=== PATIENT | female | born 1955 | race Caucasian/White ===

== ENCOUNTER 2016-08-09 11:27 | Inpatient (IN) | payer MEDICARE ==
[~2016-08-09] VITALS: Ht 167.6 cm; Wt 110.0 kg
[~2016-08-09 11:27] MED LIST: ACID1TAB3 PO; ACID1TAB7 PO; ALBU8.5H3 INH; ALBU8.5H5 INH; ALEN70TA3 PO; ALPR0.254 PO; ATOR10TA PO; Albuterol Nebulizer; CEPH-376 PO; CETI10TA18 PO; CYCL-259 PO; FAMO20TA7 PO; FLUT16SP NAS; FLUT1AER INH; FLUT1DIS3 INH; FLUT1DIS5 IH; FLUT9.9S NAS; FURO-93 PO; LACT10SO28 PO; LEVO500T33 PO; LEVO50TA5 PO; Lasix; NAPR500T3 PO; OXYC-223 PO; PANT40TA5 PO; POTA20TA91 PO; PRED10TA PO; PRED20TA PO; Spiriva; TIOT18CA INH; advair
[2016-08-09] MEDS ORDERED: LACTATED RINGERS 1,000 ML IV SCH (11:58)
[2016-08-09 12:01] VITALS: BP 115/81
[2016-08-09] MEDS ORDERED: MIDAZOLAM 1 MG/ML, 2ML ONE (12:48)
[2016-08-09] MEDS ORDERED: FENTANYL PF 100 MCG/2ML ONE ×3 (12:48→14:38)
[2016-08-09] MEDS ORDERED: LIDOCAINE 1%-EPI 1:100K, 20ML ONE (13:03)
[2016-08-09] MEDS ORDERED: SUCCINYLCHOLINE 20 MG/ML, 10ML ONE (13:12)
[2016-08-09] MEDS ORDERED: ALBUTEROL SULFATE 200 PUFFS/8.5 GR INH ONE (13:12)
[2016-08-09] MEDS ORDERED: PROPOFOL 10 MG/ML, 20ML ONE (13:12)
[2016-08-09] MEDS ORDERED: DEXAMETHASONE 4 MG/ML, 5ML ONE (13:12)
[2016-08-09] MEDS ORDERED: ROCURONIUM 10 MG/ML ONE (13:12)
[2016-08-09] MEDS ORDERED: CEFAZOLIN 1,000 MG ONE (13:12)
[2016-08-09] MEDS ORDERED: TRIAMCINOLONE ACETONIDE 40 MG/ML, 1ML ONE ×2 (13:26→13:28)
[2016-08-09] MEDS ORDERED: LIDOCAINE-MPF 1%, 2ML ONE ×2 (14:44→15:24)
[2016-08-09] MEDS ORDERED: FENTANYL PF 100 MCG/2ML IV PRN (15:30)
[2016-08-09] MEDS ORDERED: FLUTICASONE NASAL SPRAY 16GM NAS SCH (15:30)
[2016-08-09] MEDS ORDERED: morphine SULFATE 10 MG/ML, 1ML IV PRN (15:30)
[2016-08-09] MEDS ORDERED: MORPHINE SULFATE 4 MG/ML, 1ML ONE (15:35)
[2016-08-09] MEDS ORDERED: LIDOCAINE 1%, 2ML ENDO ONE (16:00)
[2016-08-09] MEDS: LACTATED RINGERS 1,000 ML IV SCH (16:33)
[2016-08-09] MEDS ORDERED: ALBUTEROL SULFATE 2.5 MG/3 ML NEB SCH (17:00)
[2016-08-09] MEDS ORDERED: ONDANSETRON 2MG/ML, 2ML IV PRN (17:00)
[2016-08-09] MEDS: OXYcodone/APAP 7.5/325MG TABLET PO PRN (18:08)
[2016-08-09] MEDS: HEPARIN 5,000 UNITS/ML, 1ML SQ SCH (18:08)
[2016-08-09] MEDS: ALBUTEROL/IPRATROPIUM 2.5MG/0.5MG, 3 ML NPPB SCH ×2 (19:16→23:23)
[2016-08-09] MEDS: ATORVASTATIN 10 MG TABLET PO SCH (20:14)
[2016-08-09] MEDS: NAPROXEN 500 MG TABLET PO SCH (20:15)
[2016-08-09] MEDS: CYCLOBENZAPRINE 10 MG TABLET PO SCH (20:15)
[2016-08-09] MEDS: FLUTICASONE NASAL SPRAY 16GM NAS SCH (20:36)
[2016-08-09] MEDS ORDERED: NAPROXEN 500 MG TABLET PO SCH (21:00)
[2016-08-09] MEDS ORDERED: IPRATROPIUM 0.5 MG/2.5 ML INHA HHN SCH (21:00)
[2016-08-09] MEDS: DEXAMETHASONE 4 MG/ML, 5ML IV SCH (21:30)
[2016-08-09] MEDS: CEFAZOLIN PMX 2GM/100ML 100 ML IV SCH (22:30)
[2016-08-09 23:43] VITALS: BP 133/86
[2016-08-10] MEDS: ALBUTEROL/IPRATROPIUM 2.5MG/0.5MG, 3 ML NPPB SCH ×6 (03:27→22:51)
[2016-08-10] MEDS: OXYcodone/APAP 7.5/325MG TABLET PO PRN ×3 (04:02→19:50)
[2016-08-10] MEDS: HEPARIN 5,000 UNITS/ML, 1ML SQ SCH ×4 (04:03→20:22)
[2016-08-10] MEDS: DEXAMETHASONE 4 MG/ML, 5ML IV SCH ×2 (04:03→13:30)
[2016-08-10 04:11] VITALS: BP 118/91
[2016-08-10 04:33] LABS: HEMOGLOBIN 14.8 g/dL (11.7-16.4)
[2016-08-10 04:46] LABS: BLOOD UREA NITROGEN 26 mg/dL (7-18)
[2016-08-10] MEDS: CEFAZOLIN PMX 2GM/100ML 100 ML IV SCH (05:48)
[2016-08-10] MEDS: LEVOTHYROXINE 50 MCG TABLET PO SCH (05:48)
[2016-08-10] MEDS: LACTATED RINGERS 1,000 ML IV SCH ×2 (05:49→19:13)
[2016-08-10] MEDS ORDERED: FLUTICASONE/VILANTEROL 100-25MCG/INH INH SCH (09:00)
[2016-08-10] MEDS: LACTULOSE 10 GM/15 ML UDC PO SCH (09:00)
[2016-08-10] MEDS ORDERED: TEMPLATE NON-FORMULARY MED. (Tiotropium Bromide** (Spiriva**) 18 MCG) INH SCH (09:00)
[2016-08-10] MEDS: FLUTICASONE/VILANTEROL 100-25MCG/INH INH SCH ×2 (09:00→11:17)
[2016-08-10] MEDS ORDERED: FUROSEMIDE 40 MG TABLET PO SCH (09:00)
[2016-08-10] MEDS ORDERED: LEVOTHYROXINE 50 MCG TABLET PO SCH (09:00)
[2016-08-10] MEDS ORDERED: POTASSIUM CHLORIDE 10 MEQ TABLET.ER PO SCH (09:00)
[2016-08-10] MEDS: NAPROXEN 500 MG TABLET PO SCH ×2 (09:10→20:19)
[2016-08-10] MEDS: FUROSEMIDE 40 MG TABLET PO SCH (09:11)
[2016-08-10] MEDS: POTASSIUM CHLORIDE 10 MEQ TABLET.ER PO SCH (09:11)
[2016-08-10] MEDS: FLUTICASONE NASAL SPRAY 16GM NAS SCH (09:12)
[2016-08-10] MEDS: PANTOPROZOLE 40MG TABLET PO SCH (09:12)
[2016-08-10] MEDS: CYCLOBENZAPRINE 10 MG TABLET PO SCH ×3 (09:12→20:19)
[2016-08-10] MEDS ORDERED: CEFAZOLIN PMX 2GM/50ML 50 ML IV SCH (14:00)
[2016-08-10 16:08] VITALS: BP 122/68
[2016-08-10 19:33] VITALS: BP 117/56
[2016-08-10] MEDS: ATORVASTATIN 10 MG TABLET PO SCH (20:19)
[2016-08-11 02:25] VITALS: BP 110/66
[2016-08-11] MEDS: ALBUTEROL/IPRATROPIUM 2.5MG/0.5MG, 3 ML NPPB SCH ×4 (02:52→13:40)
[2016-08-11] MEDS: LEVOTHYROXINE 50 MCG TABLET PO SCH (06:13)
[2016-08-11] MEDS: HEPARIN 5,000 UNITS/ML, 1ML SQ SCH ×2 (06:13→14:00)
[2016-08-11 06:49] LABS: ASPARTATE AMINO TRANSFERASE 14 U/L (15-37); BLOOD UREA NITROGEN 32 mg/dL (7-18)
[2016-08-11 07:08] VITALS: BP 110/51
[2016-08-11] MEDS: LACTATED RINGERS 1,000 ML IV SCH (08:33)
[2016-08-11] MEDS: FUROSEMIDE 40 MG TABLET PO SCH (08:40)
[2016-08-11] MEDS: FLUTICASONE/VILANTEROL 100-25MCG/INH INH SCH (08:40)
[2016-08-11] MEDS: PANTOPROZOLE 40MG TABLET PO SCH (08:40)
[2016-08-11] MEDS: POTASSIUM CHLORIDE 10 MEQ TABLET.ER PO SCH (08:40)
[2016-08-11] MEDS: NAPROXEN 500 MG TABLET PO SCH (08:43)
[2016-08-11] MEDS: CYCLOBENZAPRINE 10 MG TABLET PO SCH (08:43)
[2016-08-11] MEDS: FLUTICASONE NASAL SPRAY 16GM NAS SCH (08:43)
[2016-08-11] MEDS: OXYcodone/APAP 7.5/325MG TABLET PO PRN (08:44)
[2016-08-11] MEDS: LACTULOSE 10 GM/15 ML UDC PO SCH (08:44)
[2016-08-11] MEDS ORDERED: LEVO500T8 PO (13:09)
[2016-08-11] MEDS ORDERED: OXYC5TAB2 PO (13:09)
[2016-08-11 13:30] VITALS: BP 112/60
[2016-08-14] MEDS ORDERED: ALENDRONATE 70 MG TABLET PO SCH (06:30)
== END 2016-08-11 14:10 | disposition home or self-care (01) | DRG 205 ==
LOC: OUT 11:27 → CCU 16:08 → 4NOR 08-10 15:36
PROVIDERS: ADMIT Otolaryngology; ATTEND Otolaryngology
PROC: 0B21XFZ Change Tracheostomy Device in Trachea, External Approach (ICD-10-PCS; 2016-08-09)
PROC: 0CJS8ZZ Inspection of Larynx, Via Natural or Artificial Opening Endoscopic (ICD-10-PCS; principal; 2016-08-09 13:00)
DX: J95.09 Other tracheostomy complication (principal); J96.21 Acute and chronic respiratory failure with hypoxia; M84.48XA Pathological fracture, other site, initial encounter for fracture; J98.01 Acute bronchospasm; I10 Essential (primary) hypertension; E78.5 Hyperlipidemia, unspecified; J38.3 Other diseases of vocal cords; E03.9 Hypothyroidism, unspecified; E83.39 Other disorders of phosphorus metabolism; J38.6 Stenosis of larynx; I27.81 Cor pulmonale (chronic); J44.9 Chronic obstructive pulmonary disease, unspecified; Z72.0 Tobacco use; Z88.8 Allergy status to other drugs, medicaments and biological substances; Z88.1 Allergy status to other antibiotic agents
CPT/HCPCS: 36415; 71010; 80048; 80053; 84443; 85025; 87081; 93306; 94640; J0690; J1100; J1644; J2250; J2704; J3010; J3301; J3490; J7620; J0330; J7120

== ENCOUNTER 2017-06-16 05:46 | Day surgery (SDC) | payer MEDICARE ==
[~2017-06-16] VITALS: Ht 167.6 cm; Wt 93.0 kg
[~2017-06-16 05:46] MED LIST changes: -ALBU8.5H3 INH; +ALBU8.5H8 INH; -LEVO500T33 PO; +LEVO500T47 PO; +LEVO500T8 PO; -NAPR500T3 PO; +NAPR500T4 PO; -OXYC-223 PO; +OXYC-306 PO; +OXYC5TAB2 PO; +UMEC1DIS INH
[2017-06-16] MEDS ORDERED: LACTATED RINGERS 1,000 ML IV SCH (06:05)
[2017-06-16 06:19] VITALS: BP 112/77
[2017-06-16] MEDS ORDERED: LIDOCAINE 1%, 50ML ONE (06:37)
[2017-06-16] MEDS ORDERED: EPINEPHRINE 1 MG/ML, 1ML ONE (06:37)
[2017-06-16] MEDS ORDERED: MIDAZOLAM 1 MG/ML, 2ML ONE (07:07)
[2017-06-16] MEDS ORDERED: FENTANYL PF 100 MCG/2ML ONE ×2 (07:07→08:34)
[2017-06-16] MEDS ORDERED: ALBUTEROL SULFATE 200 PUFFS/8.5 GR INH ONE (07:33)
[2017-06-16] MEDS ORDERED: KETAMINE 10 MG/ML, 20ML ONE (07:38)
[2017-06-16] MEDS ORDERED: ONDANSETRON 2MG/ML, 2ML ONE (08:07)
[2017-06-16] MEDS ORDERED: DEXAMETHASONE 4 MG/ML, 1ML ONE (08:07)
[2017-06-16] MEDS ORDERED: PROPOFOL 10 MG/ML, 20ML ONE (08:07)
[2017-06-16] MEDS ORDERED: CEFAZOLIN 1,000 MG ONE (08:07)
[2017-06-16] MEDS ORDERED: PROMETHAZINE 25 MG/ML, 1ML IV PRN (08:30)
[2017-06-16] MEDS ORDERED: LORazepam 2 MG/ML, 1ML IVPush PRN (08:30)
[2017-06-16] MEDS ORDERED: HYDROmorphone 1 MG/ML, 1ML IV PRN (08:30)
[2017-06-16] MEDS ORDERED: OXYcodone 5 MG/5 ML ORAL.SOL UDC PO PRN (08:30)
[2017-06-16] MEDS ORDERED: MEPERIDINE/PF 25MG/0.5ML IVPush PRN (08:30)
[2017-06-16] MEDS ORDERED: ACETAMINOPHEN 325 MG TABLET PO PRN (08:30)
[2017-06-16] MEDS ORDERED: LABETALOL 5MG/ML, 20ML IV PRN (08:30)
[2017-06-16] MEDS ORDERED: ALBUTEROL/IPRATROPIUM 2.5MG/0.5MG, 3 ML NPPB PRN (08:30)
[2017-06-16] MEDS ORDERED: hydrALAzine 20 MG/ML, 1ML IV PRN (08:30)
[2017-06-16] MEDS ORDERED: ACETAMINOPHEN 650 MG/20.3 ML UDC ONE (08:33)
[2017-06-16] MEDS ORDERED: OXYcodone 5 MG/5 ML ORAL.SOL UDC ONE (08:34)
[2017-06-16] MEDS: FENTANYL PF 100 MCG/2ML IV PRN ×2 (08:36→08:51)
[2017-06-16] MEDS ORDERED: ALBUTEROL/IPRATROPIUM 2.5MG/0.5MG, 3 ML ONE (08:38)
== END 2017-06-16 11:00 | disposition home or self-care (01) ==
LOC: OUT 05:46
PROVIDERS: ATTEND Otolaryngology
DX: J38.6 Stenosis of larynx (principal); J44.9 Chronic obstructive pulmonary disease, unspecified; Z93.0 Tracheostomy status
CPT/HCPCS: 31614; 93005; 94640; J0171; J0690; J1100; J2250; J2405; J2704; J3010; J3490; J7120; J7620

== ENCOUNTER → 2018-05-25 | Outpatient (CLI) | payer MEDICARE ==
[~2018-05-25] MED LIST changes: +NAPR-685 PO; -NAPR500T4 PO
== END | disposition home or self-care (01) ==
LOC: RAD 13:18
PROVIDERS: ATTEND Internal Medicine Critical Care Medicine
DX: Z12.2 Encounter for screening for malignant neoplasm of respiratory organs (principal); J43.9 Emphysema, unspecified; Z87.891 Personal history of nicotine dependence
CPT/HCPCS: G0297

== ENCOUNTER 2018-09-18 08:00 | Outpatient (CLI) | payer MEDICARE | END 2018-09-18 23:59 | disposition home or self-care (01) | LOC: CARD 08:00 | PROVIDERS: ATTEND Nurse Practitioner Family | DX: J44.9 Chronic obstructive pulmonary disease, unspecified (principal); J96.11 Chronic respiratory failure with hypoxia | CPT/HCPCS: 94060; 94618; 94729 ==

== ENCOUNTER 2018-12-04 11:15 | Outpatient (CLI) | payer MEDICARE ==
[~2018-12-04 11:15] MED LIST changes: -FLUT16SP NAS; +FLUT16SP24 NAS
[2018-12-04] MEDS ORDERED: REGADENOSON 0.4 MG/5 ML SYRINGE ONE (12:43)
== END 2018-12-04 23:59 | disposition home or self-care (01) ==
LOC: RAD 11:15
PROVIDERS: ATTEND Internal Medicine Cardiovascular Disease
DX: I25.10 Atherosclerotic heart disease of native coronary artery without angina pectoris (principal); R60.0 Localized edema; I87.2 Venous insufficiency (chronic) (peripheral)
CPT/HCPCS: 78452; 93017; A9502; J2785

== ENCOUNTER 2018-12-31 12:56 | Outpatient (CLI) | payer MEDICARE, MEDICAID | END 2018-12-31 23:59 | disposition home or self-care (01) | LOC: CVU 12:56 | PROVIDERS: ATTEND Internal Medicine Cardiovascular Disease | DX: I25.10 Atherosclerotic heart disease of native coronary artery without angina pectoris (principal); I87.2 Venous insufficiency (chronic) (peripheral); R60.0 Localized edema | CPT/HCPCS: 0399T; 93306; 93970 ==

== ENCOUNTER 2019-05-09 12:00 | Outpatient (CLI) | payer MEDICARE, MEDICAID | END 2019-05-09 23:59 | disposition home or self-care (01) | LOC: RAD 12:00 | PROVIDERS: ATTEND Nurse Practitioner Family | DX: Z12.2 Encounter for screening for malignant neoplasm of respiratory organs (principal); J43.9 Emphysema, unspecified; I25.10 Atherosclerotic heart disease of native coronary artery without angina pectoris; Z87.891 Personal history of nicotine dependence | CPT/HCPCS: G0297 ==

== ENCOUNTER 2021-02-05 11:35 | Outpatient (CLI) | payer MEDICARE, MEDICAID ==
[~2021-02-05 11:35] MED LIST changes: -CYCL-259 PO; +CYCL10TA2 PO; -OXYC-306 PO; +OXYC1TAB16 PO; -PANT40TA5 PO; +PANT40TA6 PO
[2021-02-05] MEDS ORDERED: REGADENOSON 0.4 MG/5 ML SYRINGE ONE (12:33)
== END 2021-02-05 23:59 | disposition home or self-care (01) ==
LOC: RAD 11:35
PROVIDERS: ATTEND Internal Medicine Cardiovascular Disease
DX: R06.02 Shortness of breath (principal); I71.4 Abdominal aortic aneurysm, without rupture
CPT/HCPCS: 78452; 93017; A9502; J2785